=== PATIENT | male | born 1990 | race Caucasian/White ===

== ENCOUNTER 2017-12-17 10:43 | Emergency (ER) | payer OTHER, MEDICAID ==
[~2017-12-17] VITALS: Ht 170.2 cm; Wt 53.6 kg
[2017-12-17] MEDS ORDERED: ketorolac trometh. 30mg/ml inj. IM ONE (12:00)
[2017-12-17] MEDS ORDERED: CYCL-1 PO (12:00)
[2017-12-17] MEDS ORDERED: morphine 10mg/ml inj. IM ONE (12:00)
[2017-12-17] MEDS ORDERED: ondansetron 4mg rapidly disintigrating tab PO ONE (12:00)
[2017-12-17] MEDS ORDERED: IBUP-1984 PO (12:00)
[2017-12-17 12:23] VITALS: BP 137/82
== END 2017-12-17 12:24 | disposition home or self-care (01) ==
LOC: ER 10:44
DX: S13.9XXA Sprain of joints and ligaments of unspecified parts of neck, initial encounter (principal); Z88.0 Allergy status to penicillin; Z79.899 Other long term (current) drug therapy; V87.7XXA Person injured in collision between other specified motor vehicles (traffic), initial encounter; Y93.89 Activity, other specified; Y92.488 Other paved roadways as the place of occurrence of the external cause; Y99.8 Other external cause status
CPT/HCPCS: 99283

== ENCOUNTER 2019-10-27 08:24 | Inpatient (IN) | payer MEDICAID, OTHER ==
[~2019-10-27] VITALS: Ht 170.2 cm; Wt 59.0 kg
[2019-10-27] VITALS (13 sets, daily range): BP systolic 105–147; BP diastolic 57–81
[~2019-10-27 08:24] MED LIST: CYCL-1 PO
[2019-10-27 09:03] LABS: CLARITY,URINE CLOUDY (Clear); COLOR,URINE YELLOW (Yellow); GLUCOSE, URINE NEGATIVE (Neg); KETONES,URINE TRACE mg/dl (Neg); LEUKOCYTE ESTERASE ,URINE NEGATIVE (Neg); NITRITES, URINE NEGATIVE (Neg); OCCULT BLOOD,URINE MODERATE (Neg); PROTEIN,URINE TRACE mg/dl (Neg)
[2019-10-27 09:04] LABS: UA COLLECTION TYPE CLN CATCH MIDSTREAM
[2019-10-27 09:09] LABS: BACTERIA,URINE 1+ /HPF (Neg); MUCUS STRANDS MANY /LPF (Neg); RBC,URINE 50-100 /HPF (0-2); SQUAMOUS EPITHELIAL CELL,UR FEW /LPF (FEW); WBC,URINE 0-4 /HPF (0-4)
[2019-10-27 09:13] LABS: ALANINE AMINOTRANSFERASE 58 U/L (12-78); ALBUMIN 4.3 G/DL (3.4-5.0); ALBUMIN/GLOBULIN RATIO 1.2 (1.1-1.5); ALKALINE PHOSPHATASE 60 IU/L (46-116); ANION GAP 6 (8-16); ASPARTATE AMINO TRANSFERASE 22 U/L (10-37); BLOOD UREA NITROGEN 14 MG/DL (7-18); BUN/CREATININE RATIO 14.9 (5.4-32.0); CALCIUM 9.1 MG/DL (8.5-10.1); CHLORIDE 100 MMOL/L (99-107); CREATININE 0.94 MG/DL (0.60-1.10); GLUCOSE 131 MG/DL (70-104); LIPASE 143 U/L (73-393); POTASSIUM 4.2 MMOL/L (3.5-5.1); SODIUM 136 MMOL/L (135-145); TOTAL CARBON DIOXIDE 29.8 MMOL/L (24-32); TOTAL PROTEIN 7.8 G/DL (6.4-8.2); eGFR > 90 ML/MIN
[2019-10-27 09:16] LABS: BASOPHILS % (AUTO) 0.1 % (0-1); EOSINOPHILS % (AUTO) 0 % (0-6); HEMATOCRIT 50.6 % (42.0-52.0); HEMOGLOBIN 17.3 g/dl (14.0-17.9); LYMPHOCYTES # (AUTO) 0.8 X10'3 (1.1-4.8); LYMPHOCYTES % (AUTO) 3.9 % (21-51); MEAN CORPUSCULAR HEMOGLOBIN 30.7 PG (27.0-31.0); MEAN CORPUSCULAR HGB CONC 34.1 g/dL (33.0-36.5); MEAN CORPUSCULAR VOLUME 90.1 FL (78-98); MEAN PLATELET VOLUME 7.5 FL (7.4-10.4); MONOCYTES # (AUTO) 1.3 X10'3 (0-0.9); MONOCYTES % (AUTO) 5.9 % (2-12); NEUTROPHILS # (AUTO) 19.8 X10'3 (1.8-7.7); NEUTROPHILS % (AUTO) 90.1 % (42-75); PLATELET COUNT 186 X10'3 (140-440); RED BLOOD COUNT 5.62 X10'6 (4.70-6.10); RED CELL DISTRIBUTION WIDTH 12.7 % (11.5-14.5)
[2019-10-27] MEDS ORDERED: cefepime 2g/NS 100ml ADVANTAGE 100 ML IV STA (09:22)
[2019-10-27] MEDS ORDERED: ondansetron/PF 4mg/2ml inj IV ONE (09:25)
[2019-10-27] MEDS ORDERED: normal saline 1000ML IV soln IVB ONE (09:25)
[2019-10-27] MEDS ORDERED: iohexol 300mg/ml 100ml inj. ONE (09:31)
[2019-10-27] MEDS: morphine 4 MG/ML inj SYRINge IV PRN ×2 (09:33→13:51)
[2019-10-27] MEDS ORDERED: ringers solution, lacted 1,000 ML IV ONE (10:22)
--- NOTE | 2019-10-27 10:22 | NUR ---
First set of blood cultures have been obtained and cefepime infusion starting now. Pt is on the second of three liters of NS IV fluid bolus. Pt given a urinal to void.
[2019-10-27] MEDS ORDERED: ringers solution, lacted 1,000 ML IV SCH (10:56)
[2019-10-27] MEDS ORDERED: fentaNYL/PF 50MCG/1 ML 2ML syringe IV PRN ×2 (11:00)
[2019-10-27] MEDS ORDERED: morphine 4 MG/ML inj SYRINge IV PRN (11:00)
[2019-10-27] MEDS ORDERED: labetalol 20mg/4ml (5mg/ml) syringe IV PRN (11:00)
[2019-10-27] MEDS ORDERED: hydrALAZINE 20mg/ml inj. IV PRN (11:00)
[2019-10-27] MEDS ORDERED: ondansetron/PF 4mg/2ml inj IV PRN ×2 (11:00→11:30)
[2019-10-27] MEDS ORDERED: morphine 2 MG/ML inj. syringe IV PRN (11:00)
[2019-10-27] MEDS ORDERED: acetaminophen 325mg tablet PO PRN (11:30)
[2019-10-27] MEDS ORDERED: magnesium hydroxide 30ml (MOM) UD suspension PO PRN (11:30)
[2019-10-27] MEDS ORDERED: magnesium 4gm in 100ml NS 100 ML IV PRN (11:30)
[2019-10-27] MEDS ORDERED: magnesium Cl slow-release 64mg tablet PO PRN (11:30)
[2019-10-27] MEDS ORDERED: mag hydrox/Alum hydrox/simeth 30ml oral suspension PO PRN (11:30)
[2019-10-27] MEDS ORDERED: potassium CL 10mEq/100ml bag 100 ML IV PRN ×2 (11:30)
[2019-10-27] MEDS ORDERED: potassium Cl 20 mEq SR tablet PO PRN ×2 (11:30)
[2019-10-27] MEDS ORDERED: magnesium 2GM in 50ml NS 50 ML IV PRN (11:30)
[2019-10-27] MEDS ORDERED: BUPIVAcaine/PF 2.5 mg/ml (0.25%) 30ml vial ONE (12:04)
[2019-10-27] MEDS ORDERED: morphine 10mg/ml inj. ONE (12:36)
[2019-10-27] MEDS ORDERED: LIDOcaine 2% (20mg/ml) 5ml vial ONE (12:37)
[2019-10-27] MEDS ORDERED: ondansetron/PF 4mg/2ml inj ONE (12:38)
[2019-10-27] MEDS ORDERED: propofol inj 20 ML IV ONE (12:38)
[2019-10-27] MEDS ORDERED: rocuronium 10mg/ml inj IV ONE (12:38)
--- NOTE | 2019-10-27 13:35 | NUR ---
Received from OR via BED , accompanied by Anesthesiologist DR TONG and report given by Anesthesiolgist. PATIENT WAKING UP, DENIES PAIN, V/S WNL, NEUROVASCULAR CHECKS INTACT, 20G PIV RUE, SCD ON, BANDAIDS TO LAP SIGHTS OF ABDOMEN CDI
--- NOTE | 2019-10-27 13:52 | NUR ---
PAGER ID: [phone] MESSAGE: Kyle Caballero [id number] Pt transferring to surgical floor and has no IV or oral pain medication to administer for this floor. Please call me so we can get something onboard as pt. is painful post op. Dodie [phone]
[2019-10-27] MEDS ORDERED: HYDROmorphone inj. 0.5 MG/0.5 ML DISP.SYRIN IV PRN (13:55)
[2019-10-27] MEDS ORDERED: HYDROmorphone 1 mg/ml syringe IV PRN (13:55)
--- NOTE | 2019-10-27 14:15 | NUR ---
PATIENT A&OX4, DENIES PAIN, V/S WNL, NEUROVASCULAR CHECKS INTACT, 20G PIV RUE, SCD ON, BANDAIDS TO LAP SIGHTS OF ABDOMEN CDI. TAKEN TO 345B WITH ALL BELONGINGS AND HOOKED UP TO MONITORS IN ROOM AND REPORT GIVEN TO RN WHO HAS TAKEN OVER PATIENT CARE.
[2019-10-27] MEDS ORDERED: NO HOME MEDS (15:20)
[2019-10-27] MEDS: nicotine 21mg patch - 24 hr TD SCH (16:32)
[2019-10-27] MEDS: normal saline 1000ml 1,000 ML IV SCH ×2 (17:15→21:27)
[2019-10-27] MEDS: HYDROcodone/acetaminophen 10/325mg tab PO PRN ×2 (17:16→22:52)
--- NOTE | 2019-10-27 18:10 | NUR ---
Gave report to Sissy NEVES. Pt. in room with no needs at this time.
--- NOTE | 2019-10-27 18:54 | NUR ---
Received report from primary care nurse Ddoie NEVES. Assumed patient care. Patient is awake and alert on room air. In no apparent distress. Call light and items of frequent use within reach. Will continue to monitor for changes. Addendum: 10/27/19 at 1855 by Sissy Hunt RN occurred at 1810
[2019-10-27] MEDS: K and/or MAG REPLACEMENT MC SCH (19:04)
[2019-10-27] MEDS: cefepime 2g/NS 100ml ADVANTAGE 100 ML IV SCH (20:12)
--- NOTE | 2019-10-27 20:50 | NUR ---
PAGER ID: [phone] MESSAGE: [id number] Samy SHEPPARD: PATIENT HAS SORE THROAT, REQUESTING A THROAT LOZENGE. THANK YOU! [phone]
[2019-10-27] MEDS: benzocaine/menthol oral lozeng 1 EACH BOX MM PRN (21:18)
[2019-10-28] VITALS: BP 119/61
[2019-10-28] MEDS: HYDROcodone/acetaminophen 10/325mg tab PO PRN (04:09)
[2019-10-28] MEDS: normal saline 1000ml 1,000 ML IV SCH (04:10)
[2019-10-28 04:55] LABS: BASOPHILS % (AUTO) 0 % (0-1); EOSINOPHILS % (AUTO) 0 % (0-6); HEMATOCRIT 44.5 % (42.0-52.0); LYMPHOCYTES # (AUTO) 1.3 X10'3 (1.1-4.8); LYMPHOCYTES % (AUTO) 6.6 % (21-51); MEAN CORPUSCULAR HEMOGLOBIN 30.5 PG (27.0-31.0); MEAN CORPUSCULAR HGB CONC 33.7 g/dL (33.0-36.5); MEAN CORPUSCULAR VOLUME 90.4 FL (78-98); MEAN PLATELET VOLUME 8.1 FL (7.4-10.4); MONOCYTES # (AUTO) 1.9 X10'3 (0-0.9); MONOCYTES % (AUTO) 9.7 % (2-12); NEUTROPHILS # (AUTO) 16.5 X10'3 (1.8-7.7); NEUTROPHILS % (AUTO) 83.7 % (42-75); PLATELET COUNT 198 X10'3 (140-440); RED BLOOD COUNT 4.93 X10'6 (4.70-6.10); RED CELL DISTRIBUTION WIDTH 12.7 % (11.5-14.5); WHITE BLOOD COUNT 19.7 X10'3 (4.5-11.0)
[2019-10-28 05:17] LABS: ALANINE AMINOTRANSFERASE 40 U/L (12-78); ALBUMIN 3.4 G/DL (3.4-5.0); ALBUMIN/GLOBULIN RATIO 1.1 (1.1-1.5); ALKALINE PHOSPHATASE 42 IU/L (46-116); ANION GAP 4 (8-16); ASPARTATE AMINO TRANSFERASE 16 U/L (10-37); BILIRUBIN,TOTAL 0.8 MG/DL (0.1-1.0); BLOOD UREA NITROGEN 7 MG/DL (7-18); BUN/CREATININE RATIO 7.8 (5.4-32.0); CALCIUM 8.8 MG/DL (8.5-10.1); CHLORIDE 105 MMOL/L (99-107); GLUCOSE 127 MG/DL (70-104); MAGNESIUM 1.8 MG/DL (1.5-2.4); POTASSIUM 4.2 MMOL/L (3.5-5.1); SODIUM 138 MMOL/L (135-145); TOTAL PROTEIN 6.6 G/DL (6.4-8.2); eGFR > 90 ML/MIN
[2019-10-28] MEDS ORDERED: famotidine/PF 10 mg/ml inj IV ONE (06:00)
--- NOTE | 2019-10-28 06:06 | NUR ---
Reported off to Elda NEVSE. Patient is resting with relaxed and unlabored respirations on room air. Call light and items of frequent use within reach.
--- NOTE | 2019-10-28 06:30 | NUR ---
Patient in room [facility]. I have received report from Sissy NEVES and had the opportunity to ask questions and assume patient care.
[2019-10-28 07:00] VITALS: BP 101/48
[2019-10-28] MEDS: cefepime 2g/NS 100ml ADVANTAGE 100 ML IV SCH (07:36)
[2019-10-28] MEDS: nicotine 21mg patch - 24 hr TD SCH (07:37)
[2019-10-28] MEDS: benzocaine/menthol oral lozeng 1 EACH BOX MM PRN (07:42)
[2019-10-28] MEDS: K and/or MAG REPLACEMENT MC SCH (08:00)
--- NOTE | 2019-10-28 09:52 | NUR ---
Dr Contreras saw patient and stated pt is ok for discharge to home. Pt instructed to ambulate frequently to facilitate flatus and bm, to not lift >20#, to avoid gas producing foods, to f/u in MD office next week, and pain meds have been called in to pt's pharmacy.
[2019-10-28] MEDS ORDERED: METR-159 PO (09:56)
[2019-10-28] MEDS ORDERED: DOCU-148 PO (09:57)
[2019-10-28] MEDS ORDERED: HYDR-4353 PO (10:18)
--- NOTE | 2019-10-28 10:30 | NUR ---
Discharge instructions given to patient. Patient verbalized understanding of all instruction given. New prescription transmitted to pharmacy of choice. Peripheral IV catheter removed, tip intact. Instructed patient to ensure he has all his belongings with him before leaving.
== END 2019-10-28 10:29 | disposition home or self-care (01) | DRG 233 ==
LOC: ER 08:24 → SUR 3N 11:27
PROVIDERS: ADMIT Family Medicine; ATTEND Family Medicine
PROC: 0DTJ4ZZ Resection of Appendix, Percutaneous Endoscopic Approach (ICD-10-PCS; principal; 2019-10-27 12:24)
DX: K35.30 Acute appendicitis with localized peritonitis, without perforation or gangrene (principal); Z87.891 Personal history of nicotine dependence
CPT/HCPCS: 36415; 74177; 80053; 81001; 83605; 83690; 83735; 84145; 85025; 85610; 86885; 86900; 86901; 87040; 87081; 99285; A4215; A4618; A7000; G0378; J0692; J2001; J2270; J2405; J2704; J3490; J7030; J7120; Q9967

== ENCOUNTER 2019-12-15 10:24 | Emergency (ER) | payer MEDICAID ==
[~2019-12-15] VITALS: Ht 170.2 cm; Wt 56.8 kg
[~2019-12-15 10:24] MED LIST changes: -CYCL-1 PO; +DOCU-148 PO
[2019-12-15 10:31] VITALS: BP 120/82
--- NOTE | 2019-12-15 12:07 | NUR ---
Pt ambulating to restroom with steady gait.
--- NOTE | 2019-12-15 12:12 | NUR ---
US at bedside.
[2019-12-15 12:30] LABS: CLARITY,URINE CLOUDY (Clear); COLOR,URINE YELLOW (Yellow); GLUCOSE, URINE NEGATIVE (Neg); KETONES,URINE NEGATIVE (Neg); LEUKOCYTE ESTERASE ,URINE NEGATIVE (Neg); NITRITES, URINE NEGATIVE (Neg); OCCULT BLOOD,URINE MODERATE (Neg); PROTEIN,URINE NEGATIVE (Neg); UA COLLECTION TYPE CLN CATCH MIDSTREAM; UROBILINOGEN,URINE 0.2 E.U/dL (0.2-1.0)
[2019-12-15] MEDS ORDERED: azithromycin 250mg tablet PO ONE (12:40)
[2019-12-15] MEDS ORDERED: CefTRIAXone 250MG IM Kit w/LIDOcaine IM ONE (12:40)
[2019-12-15 12:42] LABS: AMORPHOUS URATES 2+
[2019-12-15 12:44] LABS: BACTERIA,URINE NONE SEEN /HPF (Neg); SQUAMOUS EPITHELIAL CELL,UR FEW /LPF (FEW); WBC,URINE 0-4 /HPF (0-4)
== END 2019-12-15 13:09 | disposition home or self-care (01) ==
LOC: ER 10:24
DX: N50.812 Left testicular pain (principal); R31.9 Hematuria, unspecified; Z11.3 Encounter for screening for infections with a predominantly sexual mode of transmission; R50.9 Fever, unspecified; Z72.89 Other problems related to lifestyle; Z88.0 Allergy status to penicillin; Z79.899 Other long term (current) drug therapy
CPT/HCPCS: 36415; 76870; 81001; 87491; 87591; 93976; 96372; 99284; J0696

== ENCOUNTER 2021-04-10 13:37 | Emergency (ER) | payer MEDICAID ==
[~2021-04-10] VITALS: Ht 167.6 cm; Wt 68.0 kg
[2021-04-10 14:22] VITALS: BP 155/80
== END 2021-04-10 16:32 | disposition home or self-care (01) ==
LOC: ER 13:38
DX: S63.642A Sprain of metacarpophalangeal joint of left thumb, initial encounter (principal); M79.645 Pain in left finger(s); Z72.89 Other problems related to lifestyle; Z88.0 Allergy status to penicillin; Z79.899 Other long term (current) drug therapy; X58.XXXA Exposure to other specified factors, initial encounter; Y93.89 Activity, other specified; Y92.89 Other specified places as the place of occurrence of the external cause; Y99.8 Other external cause status
CPT/HCPCS: 29130; 99283

== ENCOUNTER 2022-06-02 11:53 | Emergency (ER) | payer MEDICAID ==
[~2022-06-02] VITALS: Ht 167.6 cm; Wt 68.0 kg
[2022-06-02 12:08] VITALS: BP 132/90
[2022-06-02 13:50] LABS: BASOPHILS # (AUTO) 0.1 X10'3 (0-0.2); BASOPHILS % (AUTO) 0.7 % (0-1); EOSINOPHILS # (AUTO) 0.3 X10'3 (0-0.9); EOSINOPHILS % (AUTO) 3.6 % (0-6); HEMATOCRIT 48.4 % (42.0-52.0); HEMOGLOBIN 16.5 g/dl (14.0-17.9); LYMPHOCYTES % (AUTO) 21.5 % (21-51); MEAN CORPUSCULAR HEMOGLOBIN 30.5 PG (27.0-31.0); MEAN CORPUSCULAR VOLUME 89.7 FL (78-98); MEAN PLATELET VOLUME 7.2 FL (7.4-10.4); MONOCYTES # (AUTO) 0.8 X10'3 (0-0.9); MONOCYTES % (AUTO) 8.5 % (2-12); NEUTROPHILS # (AUTO) 6.1 X10'3 (1.8-7.7); NEUTROPHILS % (AUTO) 65.7 % (42-75); PLATELET COUNT 251 X10'3 (140-440); RED BLOOD COUNT 5.39 X10'6 (4.70-6.10); RED CELL DISTRIBUTION WIDTH 13.1 % (11.5-14.5); WHITE BLOOD COUNT 9.3 X10'3 (4.5-11.0)
[2022-06-02 14:05] LABS: ALANINE AMINOTRANSFERASE 48 U/L (12-78); ALBUMIN 4.2 G/DL (3.4-5.0); ALBUMIN/GLOBULIN RATIO 1.1 (1.1-1.5); ALKALINE PHOSPHATASE 71 IU/L (46-116); ANION GAP 7 (8-16); ASPARTATE AMINO TRANSFERASE 26 U/L (10-37); BILIRUBIN,TOTAL 0.5 MG/DL (0.1-1.0); BLOOD UREA NITROGEN 18 MG/DL (7-18); BUN/CREATININE RATIO 21.7 (5.4-32.0); CALCIUM 9.6 MG/DL (8.5-10.1); CHLORIDE 104 MMOL/L (99-107); CREATININE 0.83 MG/DL (0.60-1.10); GLUCOSE 102 MG/DL (70-104); LIPASE 135 U/L (73-393); POTASSIUM 4.4 MMOL/L (3.5-5.1); SODIUM 140 MMOL/L (135-145); TOTAL CARBON DIOXIDE 29.4 MMOL/L (24-32); TOTAL PROTEIN 7.9 G/DL (6.4-8.2); eGFR > 90 ML/MIN
[2022-06-02] MEDS ORDERED: mag hydrox/Alum hydrox/simeth 30ml oral suspension PO ONE (14:20)
== END 2022-06-02 15:30 | disposition home or self-care (01) ==
LOC: ER 11:54
DX: R10.13 Epigastric pain (principal); Z88.0 Allergy status to penicillin
CPT/HCPCS: 36415; 76700; 80053; 83690; 85025; 99284

== ENCOUNTER 2023-08-13 08:54 | Emergency (ER) | payer MEDICAID ==
[~2023-08-13] VITALS: Ht 167.6 cm; Wt 52.5 kg
[2023-08-13 09:35] LABS: BASOPHILS # (AUTO) 0.1 X10'3 (0-0.2); BASOPHILS % (AUTO) 1.1 % (0-1); EOSINOPHILS # (AUTO) 0.4 X10'3 (0-0.9); HEMATOCRIT 47.1 % (42.0-52.0); LYMPHOCYTES # (AUTO) 1.4 X10'3 (1.1-4.8); LYMPHOCYTES % (AUTO) 26.2 % (21-51); MEAN CORPUSCULAR HEMOGLOBIN 30.6 PG (27.0-31.0); MEAN CORPUSCULAR HGB CONC 34.1 g/dL (33.0-36.5); MEAN CORPUSCULAR VOLUME 89.8 FL (78-98); MEAN PLATELET VOLUME 7.6 FL (7.4-10.4); MONOCYTES # (AUTO) 0.4 X10'3 (0-0.9); MONOCYTES % (AUTO) 7.4 % (2-12); NEUTROPHILS # (AUTO) 3.1 X10'3 (1.8-7.7); NEUTROPHILS % (AUTO) 58.3 % (42-75); PLATELET COUNT 185 X10'3 (140-440); RED BLOOD COUNT 5.24 X10'6 (4.70-6.10); RED CELL DISTRIBUTION WIDTH 13.2 % (11.5-14.5); WHITE BLOOD COUNT 5.4 X10'3 (4.5-11.0)
[2023-08-13 10:14] LABS: ALBUMIN 3.8 G/DL (3.4-5.0); ANION GAP 7 (8-16); BLOOD UREA NITROGEN 13 MG/DL (7-18); BUN/CREATININE RATIO 12.4 (10.0-20.0); CALCIUM 8.7 MG/DL (8.5-10.1); CHLORIDE 103 MMOL/L (99-107); CREATININE 1.05 MG/DL (0.60-1.10); GLUCOSE 79 MG/DL (70-104); POTASSIUM 3.9 MMOL/L (3.5-5.1); PRO BRAIN NATRIURETIC PEPTIDE < 30 PG/ML (0-125); SODIUM 139 MMOL/L (135-145); TOTAL CARBON DIOXIDE 29.1 MMOL/L (24-32); eCRCL 75 ML/MIN; eGFR 82 ML/MIN
[2023-08-13] MEDS ORDERED: BUPR100T13 PO (11:24)
[2023-08-13 12:05] VITALS: TEMP 98.3
[2023-08-13] MEDS: meclizine 12.5mg tablet PO ONE (13:03)
[2023-08-13] MEDS ORDERED: MECL-302 PO (13:51)
[2023-08-13 15:04] VITALS: BP 116/77; PULSE 73; RESP 18; O2SAT 98
== END 2023-08-13 15:00 | disposition home or self-care (01) ==
LOC: ER 08:54
DX: R42 Dizziness and giddiness (principal); Z88.0 Allergy status to penicillin; Z90.49 Acquired absence of other specified parts of digestive tract
CPT/HCPCS: 36415; 70450; 71045; 80048; 83880; 84484; 85025; 93005; 99285; J8597

== ENCOUNTER 2023-10-25 12:58 | Outpatient (CLI) | payer MEDICAID ==
[~2023-10-25 12:58] MED LIST changes: +BUPR100T13 PO; -DOCU-148 PO; +MECL-302 PO
== END 2023-10-25 23:59 | disposition home or self-care (01) ==
LOC: MRI 12:58
PROVIDERS: ATTEND Family Medicine
DX: R42 Dizziness and giddiness (principal)
CPT/HCPCS: 70544; 70551